=== PATIENT | female | born 1950 | race Caucasian/White ===

== ENCOUNTER 2017-10-12 09:55 | Outpatient (CLI) | payer MEDICARE, BC ==
[~2017-10-12] VITALS: Ht 157.5 cm; Wt 68.2 kg
[~2017-10-12 09:55] MED LIST: BAYER CHEWABLE81 MG PO; COZAAR25 MG PO; LIPITOR20 MG PO; PEPCID20 MG PO; PROZAC20 MG PO; SYNTHROID125 MCG PO
[2017-10-12 11:01] VITALS: BP 145/52; Ht 157.5 cm; Wt 68.2 kg
== END 2017-10-12 11:20 | disposition home or self-care (01) ==
LOC: D.OPS 09:55
DX: M81.0 Age-related osteoporosis without current pathological fracture (principal)

== ENCOUNTER 2018-09-14 18:21 | Outpatient (CLI) | payer MEDICARE, BC ==
[2017-10-12 11:01] VITALS: BMI 27.5
== END 2018-09-14 18:22 | disposition home or self-care (01) ==
LOC: D.MAMMO 18:21
DX: M18.0 Bilateral primary osteoarthritis of first carpometacarpal joints (principal)